=== PATIENT | female | born 1960 | race Caucasian/White ===

== ENCOUNTER 2020-01-19 14:25 | Inpatient (IN) | payer BC ==
[~2020-01-19] VITALS: Ht 154.9 cm; Wt 89.0 kg
--- NOTE | 2020-01-19 14:25 | NUR ---
PATIENT TO ROOM VIA WHEELCHAIR AND PHYSICIAN NOTIFIED OF PATIENT STATUS
--- NOTE | 2020-01-19 15:30 | NUR ---
PT RESTING ON STRETCHER WITH ANTIBIOTICS INFUSING. DENIES ANY NEEDS AT THIS TIME. CALL LIGHT WITHING REACH
[2020-01-19 15:32] LABS: HEMATOCRIT 42.1 % (37.0-47.0); HEMOGLOBIN 14.3 g/dl (12.0-16.0); IMMATURE GRANULOCYTES 0.6 % (0.0-5.0); MEAN CELL VOLUME 85.4 fL CALC (80.0-100.0); NEUT# 8.23 thou/uL (2.00-7.15); RED BLOOD COUNT 4.93 mill/uL (4.20-5.60); RED CELL DISTRI WIDTH 12.6 % (11.5-15.5)
[2020-01-19 15:58] LABS: ALBUMIN 4.1 g/dL (3.2-5.0); ALKALINE PHOSPHATASE 71 u/l (38-126); ANION GAP 14 (6-22 (CALC)); BILIRUBIN, TOTAL 0.7 mg/dL (0.0-1.4); BUN 14 mg/dL (7-17); BUN/CREATININE RATIO 19 (12-20 (CALC)); CARBON DIOXIDE 26 mmol/l (22-30); CHLORIDE 99 mmol/l (95-108); CREATININE 0.8 mg/dL (0.5-1.0); GFR > 60 ML/MIN (>=60 (CALC)); GFR FOR AFR.AMER. > 60 ML/MIN (>=60 (CALC)); POTASSIUM 3.7 mmol/l (3.5-5.1); SGOT/AST 51 u/l (14-36); SODIUM 135 mmol/l (137-146); TOTAL PROTEIN 7.5 g/dL (6.3-8.2)
[2020-01-19 16:09] LABS: C-REACTIVE PROTEIN 19.2 mg/dL (0-0.9)
[2020-01-19] MEDS ORDERED: OZEMPIC2 MG/1.5 M (16:10)
--- NOTE | 2020-01-19 16:17 | NUR ---
PT RESTING ON STRETCHER. PT DESAT TO 87% RESP AT BEDSIDE APPLYING A VAPOTHERM. PT IN NO DISTRESS. HOB ELEVATED. WILL CONTINUE TO MONITOR.
--- NOTE | 2020-01-19 16:19 | NUR ---
PT RESTING ON STRETCHER DENIES ANY NEEDS WILL CONTINUE TO MONITOR. CALL LIGHT WITHIN REACH
--- NOTE | 2020-01-19 17:01 | NUR ---
PT DISCUSSING PLAN OF CARE WITH MD WHO IS AT BEDSIDE. PT CONTINUES ON O2. TOLERATING WELL, IN NO DISTRESS. DENIES ANY NEEDS. WILL CONTINUE TO MONITOR.
--- NOTE | 2020-01-19 17:45 | NUR ---
PT TRANSPORTED TO ICU STABLE AND IN NO DISTRESS. PT CARE ASSUMED TO LELAND Admission Note Report Given to: LEALND Transported by: Wheelchair X Stretcher Transported with: Nurse Transporter X Patent IV X O2 X Out And Out Cigar Maker Hand Location: X ICU MS2
--- NOTE | 2020-01-19 17:45 | NUR ---
GAVE REPORT TO LELAND
[2020-01-19 18:00] VITALS: BP 140/61
--- NOTE | 2020-01-19 18:30 | NUR ---
PT ARRIVES TO ROOM 3 IN ICU BY STRETCHER FROM ER ACCOMPANIED BY KRYSTLE DENT. PT IS ALERT AND ORIENTED X 3, AMBULATORY. PT PLACED ON MONITORS. NO COMPLAINT OF SHORTNESS OF BREATH OR OTHERWISE. CALL BROUSSARD AT BEDSIDE.
[2020-01-19 19:00] VITALS: BP 148/69
--- NOTE | 2020-01-19 19:45 | NUR ---
RESTING IN BED ON ROUNDS. ALERT AND ORIENTED. RESP NON-LABORED AT REST. ASSISTED PATIENT UP TO BSC, DYSPNEIC WITH EXERTION. BREATH SOUNDS COARSE THROUGHOUT LUNG RICK. O2 ON AT 2 L NC. NO PERIPHERAL EDEMA. LUIS HOSE ON BILATERALLY. PERIPHERAL PULSES PALPABLE. SALINE LOCK IN RAC, SITE BENIGN, FLUSHED AND PATENT. NS STARTED AT 80 ML/HR ORDERED. PROFESSIONAL HOUSING CONSULTANT SHOWS SR. DISCUSSED PLAN OF CARE. MEDICATED WITH TYLENOL 650 MG PO FOR C/O HEADACHE. CALL BROUSSARD IN REACH.
[2020-01-19 20:00] VITALS: BP 144/70
[2020-01-19 21:00] VITALS: BP 134/72
--- NOTE | 2020-01-19 21:59 | NUR ---
RESTING QUIETLY IN BED. RESP NON-LABORED AT REST. VSS. SR ON MONITOR.
[2020-01-19 22:00] VITALS: BP 110/58
[2020-01-19 23:00] VITALS: BP 130/61
[2020-01-20] VITALS (19 sets, daily range): BP systolic 115–203; BP diastolic 56–89
--- NOTE | 2020-01-20 | NUR ---
PATIEINT SOB WITH MINIMAL EXERTION. VSS. SR ON MONITOR.
--- NOTE | 2020-01-20 00:15 | NUR ---
O2 SAT RUNNING 80-84% ASSISTED PATIENT TO PRONE POSTION.
--- NOTE | 2020-01-20 00:30 | NUR ---
O2 SAT SHOWING 85% CHANGED TO HF NC AT 10 L. O2 SAT PICKED UP TO 90-93%
--- NOTE | 2020-01-20 02:00 | NUR ---
VSS. O2 SAT 93% SR ON MONITOR.
--- NOTE | 2020-01-20 04:00 | NUR ---
NO CHANGES TO REPORT. CONTINUES ON HF NC AT 10 L. O2 SAT 90-95% SR ON MONITOR.
[2020-01-20 05:08] LABS: HEMATOCRIT 39.2 % (37.0-47.0); HEMOGLOBIN 13.2 g/dl (12.0-16.0); IMMATURE GRANULOCYTES 0.5 % (0.0-5.0); MEAN CELL VOLUME 86.5 fL CALC (80.0-100.0); MEAN CORPUSCULAR HGB 29.1 pG CALC (26.0-32.0); MEAN CORPUSCULAR HGB CONC 33.7 g/dL CAL (32.0-36.0); NEUT# 6.22 thou/uL (2.00-7.15); RED BLOOD COUNT 4.53 mill/uL (4.20-5.60); RED CELL DISTRI WIDTH 12.6 % (11.5-15.5)
[2020-01-20 05:32] LABS: ANION GAP 11 (6-22 (CALC)); BUN 14 mg/dL (7-17); BUN/CREATININE RATIO 25 (12-20 (CALC)); CARBON DIOXIDE 26 mmol/l (22-30); CHLORIDE 104 mmol/l (95-108); CREATININE 0.5 mg/dL (0.5-1.0); GFR > 60 ML/MIN (>=60 (CALC)); GFR FOR AFR.AMER. > 60 ML/MIN (>=60 (CALC)); POTASSIUM 4.3 mmol/l (3.5-5.1); SODIUM 136 mmol/l (137-146)
--- NOTE | 2020-01-20 06:10 | NUR ---
RESTING WITH EYES CLOSED. RESP NON-LABORED AT REST. REMAINS ON O2 AT 10 L HF NC. NS INFUSING AT 80 ML/HR. MONITOR SR.
--- NOTE | 2020-01-20 07:09 | NUR ---
CHANGED HUMIDIFICAGTION CHAMBER. PT DESAT TO 83 DURING THAT TIME. SUPERVISOR RUBBER COVERING PLACED PT ON HFNC AT 11LPM. SPO2 =89 WHEN SUPERVISOR RUBBER COVERING LEFT ROOM. PA IN NAD. VSS. RN AWARE. AIRPLANE TECHNICIAN IN ROOM WITH PT TO HELP USE RESTROOM. SUPERVISOR RUBBER COVERING TO MONITOR.
--- NOTE | 2020-01-20 08:12 | NUR ---
PT SITTING UP IN BED, ALERT/ORIENTED TO SELF. STATES SLIGHT SOB, PT IS ON HIGH FLOW AT 10
--- NOTE | 2020-01-20 11:12 | NUR ---
PT SITTING UP IN CHAIR PER REQUEST. SATS 85%
--- NOTE | 2020-01-20 11:29 | NUR ---
PT REMAINS SITTING UP IN CHAIR, STATES FEELS A LITTLE BETTER SITTING UP, WATCHING TV. ALERT/ORIENTED X3, SATS 88% ON HIGH FLOW 11 LITRE.
--- NOTE | 2020-01-20 11:54 | NUR ---
INCREASED LPM ON HFNC PER PT SPO2 IN CHAIR=86. RT TO MONITOR. POSSIBLE VAPOTHERM IF HFNC NOT TOLERATED.
--- NOTE | 2020-01-20 15:31 | NUR ---
PT USING BEDSIDE COMMODE AT THIS TIME. SPO2 MONITOR OFF. NAD. VSS. INGOT CASTER IN ROOM WITH PT. -
--- NOTE | 2020-01-20 15:31 | NUR ---
PT PLACED BACK IN BED. SATS 83%, RT AT BEDSIDE
--- NOTE | 2020-01-20 17:47 | NUR ---
PT SITTING UP IN BED, EATING DINNER TRAY, STILL WATCHING A FOOTBALL GAME. PT DENIES ANY COMPLAINTS AT THIS TIME
--- NOTE | 2020-01-20 20:30 | NUR ---
PATIENT RESTING IN SEMI-FOWLERS POSITION. RESP SHALLOW AND LABORED. ON O2 AT 15 L PER HFNC. RESP RATE 42. O2 SAT 83-84% BREATH SOUNDS COARSE, DIMINISHED. NON-PRODUCTIVE COUGH PRESENT. ABD SOFTLY DISTENDED, ACTIVE BOWEL SOUNDS HEARD. NO PERIPHERAL EDEMA, PULSES PALPABLE. IV IN RAC, SITE BENIGN, NS INFUSING AT 80 ML/HR. MANAGER MORTGAGE SHOWS SR. EXPLAINED TO PATIENT BENEFITS OF PRONING. PATIENT STATES "I CAN'T DO IT." WILL CONTINUE TO MONITOR CLOSELY. DISCUSSED PLAN OF CARE.
--- NOTE | 2020-01-20 20:35 | NUR ---
CALLED RT TO EVALUATE PATIENT.
--- NOTE | 2020-01-20 20:45 | NUR ---
ABG'S DRAWN PER RT. PATIENT REMAINS WITH RESP RATE IN THE 40'S WITH O2 SAT IN TH ELOW 80'S EVEN AT REST. EXPLAINED PLACEMENT OF CONTRERAS CATHETER TO PATIENT AND SHE VERBALLLY GAVE PERMISSION. #18 CONTRERAS CATHETER PLACED AND DRAINING CLAER YELLOW URINE.
--- NOTE | 2020-01-20 21:00 | NUR ---
CALL TO DR DOVE TO REPORT PATIENT DESATTING, ABG RESULTS, SAHALLOW RAPID RESP AND C/O BACK PAIN. NEW ORDERS RECEIVED.
--- NOTE | 2020-01-20 22:03 | NUR ---
RT CALLED TO EVALUATE PATIENT.
--- NOTE | 2020-01-20 22:15 | NUR ---
MORPHINE 1 MG IVP GIVEN FOR C/O BACK PAIN. PATIENT RESTING IN SEMI-FOWLERS POSITION. O2 SAT 89%
--- NOTE | 2020-01-20 23:00 | NUR ---
RESTING WITH EYES CLOSED.
[2020-01-21] VITALS (19 sets, daily range): BP systolic 160–191; BP diastolic 69–94
--- NOTE | 2020-01-21 | NUR ---
O2 SAT CONTINUES 80-84% WILL CONTINUE TO MONITOR.
--- NOTE | 2020-01-21 00:15 | NUR ---
ASSISTED PATIENT TO PRONE POSITION.
--- NOTE | 2020-01-21 00:30 | NUR ---
PATIENT UNABLE TO TOLERATE PRONING. O2 SAT DROPPED INTO THE 70'S. CALLED TO RT TO EVALAUTE.
--- NOTE | 2020-01-21 00:35 | NUR ---
RESP RATE 48. RESP SHALLOW, RAPID, LABORED. O2 SAT CONTINUES 78-83% RT PLACED ON BIPAP [id number], EPAP-6, RATE 16, FIO2-100% O2 SAT PICKED UP INTO THE 90'S. EMOTIONAL SUPPORT AND REASSURNACE PROVIDED TO PATIENT.
--- NOTE | 2020-01-21 01:00 | NUR ---
O2 SAT 95-97% ON BIPAP. RESTING WITH EYES CLOSED.
--- NOTE | 2020-01-21 02:00 | NUR ---
VSS. SR ON MONITOR. TOLERATING BIPAP WELL. O2 SAT 96%
--- NOTE | 2020-01-21 03:00 | NUR ---
DOZES FOR SHORT INTERVALS. PATIENT C/O MOUTH AND THROAT BEING DRY FROM BIPAP-ASSISTED PATIENT WITH SIPS OF WATER.
--- NOTE | 2020-01-21 04:00 | NUR ---
RESTING CALMLY AND QUIETLY. VSS. SR ON MONITOR. IV INFUSING WITHOUT INCIDENT.
--- NOTE | 2020-01-21 05:21 | NUR ---
MEDICATED WITH MORPHINE 1 MG IVP ORDERED FOR C/O BACK PAIN. PATIENT RESTIGN IN SEMIFOWLERS POSITON. REMAINS TACHYPNEIC-RESP RATE 42-50. BIPAP SETTINGS UNCHANGED FROM EARLIER. O2 SAT 94% MONITOR SR.
--- NOTE | 2020-01-21 06:00 | NUR ---
RESTING QUIETLY AT THIS TIME. VSS. FREQ EMOTIONAL SUPPORT AND REASSURANCE PROVIDED TO PATIENT THROUGHOUT THE SHIFT. VSS. SR ON MONITOR.
--- NOTE | 2020-01-21 07:43 | NUR ---
PT REPORT RECEIVED FROM ICU NURSE, RESP TECH HERE AND CHANGED MASK ON CPAP, PT RESP AROUND 40 WITH CPAP
--- NOTE | 2020-01-21 08:14 | NUR ---
PTS SATS REMAIN AT 95%, WITH PT LYING ON BED, ON BIPAP, RESP APPROX 40 AT THIS TIME. PT STATES IS ABLE TO TOLERATE IT AT THIS TIME, BUT DOESNT KNOW HOW LONG SHE WANTS TO KEEP THE MASK ON,
--- NOTE | 2020-01-21 08:38 | NUR ---
PER WOULD LIKE TO TRY PT BACK ON VAPOTHERM INSTEAD OF BIPAP, NOTIFIED RESP TECH, ALSO REQUESTED AN ORDER FOR SOMETHING FOR ANXIETY, PTS STATES SHE CANT CALM DOWN WITH THE BIPAP ON.
--- NOTE | 2020-01-21 09:32 | NUR ---
EXPLAINED TO PT THAT WE WOULD BE TRYING TO PLACE PT BACK ON VAPOTHERM TO SEE HOW WELL SHE DOES WITH THAT, IF SATS DO NOT REMAIN UP OR RESP INCREASE WILL PLACE PT BACK ON BIPAP. IV FLUIDS REDUCED TO 50 CC/HR
--- NOTE | 2020-01-21 11:23 | NUR ---
TRIED TO PLACE PT ON VAPOTHERM AND PTS SATS DROPPED TO 70'S AND RESP WENT UP TO 46-48, AND PTS STARTED SAYING SHE HAD TO SIT UP AND IT WAS GETTING TOO HOT, SHE NEEDED AIR, PLACED PT BACK ON BIPAP. SATS WENT UP TO 91% RESP WENT DOWN TO 34. PT STATES FEELS A LITTLE BETTER AFTER BEING PLACED BACK ON BIPAP.
--- NOTE | 2020-01-21 11:56 | NUR ---
PT TRIALED ON VAPOTHERM OFF OF BIPAP. PT RR 40'S SPO2 DECLINED TO 74. PT RETURNED TO BIPAP ORIGINAL SETTINGS AND DR. VIDAL NOTIFIED.
--- NOTE | 2020-01-21 12:03 | NUR ---
DR. DOVE AT BEDSIDE, SPEAKING TO PT ABOUT POSSIBLY BEING PLACED ON VENT, WILL TRY HER ON CPAP AND IF THAT DOESNT WORK WILL PLACE HER ON VENTILATOR.
--- NOTE | 2020-01-21 12:23 | NUR ---
PT PLACED ON CPAP 12 100% FIO2 PRE DR. VIDAL.PT TOLERATING AT THIS TIME. FILIPE TRUJILLO AWARE AND AT BEDSIDE. WILL CONTINUE TO MONITOR.
--- NOTE | 2020-01-21 12:23 | NUR ---
SPOKE TO PT ABOUT POSSIBLY PLACING ON VENTILLATOR, PT STATES "NOT NOW, NO NOT NOW". SPOKE TO AND INFORMED HIM THAT PT IS NOT READY AT THIS TIME TO SIGN CONSENT. WILL SEE HOW PT DOES ON CPAP AT THIS TIME. SATS REMAIN IN LOW 90'S
--- NOTE | 2020-01-21 12:47 | NUR ---
PTS SATS UP TO 97%, RESP TECH, ADJUSTED CPAP TO 70% AND 12. PT APPEARS TO BE TOLERATING CPAP AT THIS TIME, SATS AT 90%
--- NOTE | 2020-01-21 12:54 | NUR ---
PT STATES FEELS A LITTLE EASIER BREATHING FOR HER AT THIS TIME. WAS TEXTING ON HER PHONE AND GIVING A THUMBS UP THAT SHE IS OKAY
--- NOTE | 2020-01-21 12:58 | NUR ---
0630 RECEIVED PT ON BIPAP WITH ORDERED SETTINGS 18/6/100%. INCREASED PEEP TO 8 SPO2 92%. FILIPE TRUJILLO AWARE. 0830 PT RR REMAINS ABOVE 45. DR. VIDAL AWARE. PEEP INCREASED TO 10. PT ASK TO USE VAPOTHERM, UNSUCCESSFULLY. PT RETURNED TO BIPAP NOTED. FILIPE SOMMER AWARE.
--- NOTE | 2020-01-21 13:16 | NUR ---
ABG OBTAINED AT THIS TIME.
--- NOTE | 2020-01-21 13:22 | NUR ---
ABG RESULTS ON CPAP OF 12. 7.40/37.1/73/22.7/93.8% SPO2. FILIPE US.
--- NOTE | 2020-01-21 15:03 | NUR ---
PT REMAINS ON CPAP, INSTRUCTED PT ONCE AGAIN TO USE SLOW DEEPER BREATHS, WHEN INSTRUCTED PT CAN SLOW BREATHS DOWN TO 26-28, BUT IF NOT IN THERE TALKING TO PT, SHE WILL GO BACK UP TO 40-50 RESP RATE, PT STILL REMAINS ADAMANT THAT SHE DOES NOT WANT TO SIGN ANY CONSENTS AT THIS TIME TO BE INTUBATED.
--- NOTE | 2020-01-21 15:17 | NUR ---
TRIED TO SPEAK TO PT AGAIN ABOUT INTUBATION, AND THAT HER RESPIRATORY RATE WAS TOO HIGH AND SATS DROPPING AND SHE NEEDED TO CONSIDER THE NEXT STEP POSSIBLY BEING INTUBATION, AND SHE STATED"PLEASE DO NOT TALK TO ME ABOUT THIS AGAIN" , I WILL LET YOU KNOW WHEN I FEEL LIKE I CANT CATCH MY BREATH. ADVISED PT ABOUT THE RISKS, AND SHE STILL STATED NO
--- NOTE | 2020-01-21 17:00 | NUR ---
PT TEXTING ON PHONE, REMAINS ON CPAP, SATS 95% RR FROM 38-50'S, WILL DROP TO 28-30 WHEN YOU TELL HER TO TAKE SLOW DEEPER BREATHS.
--- NOTE | 2020-01-21 17:31 | NUR ---
PT REMAINS ALERT/ORIENTED X3, TEXTING ON PHONE, TOOK OFF MASK LONG ENOUGH TO ALLOW PT SOME SIPS OF WATER AND MOUTH CARE. REPOSITIONED PT IN BED, PT STILL ADAMANT THAT SHE IS DOING OKAY WITH CPAP AND DOES NOT NEED ANY OTHER HELP AT THIS TIME. SATS 95% RR 48 AT THIS TIME, ASKED PT TO SLOW BREATHING DOWN AND IT DROPPED TO 28 RR
--- NOTE | 2020-01-21 18:12 | NUR ---
INFORMED PT THAT HAD CALLED, AND SHE INDICATED WITH LIFTING UP HER PHONE THAT SHE HAD TEXTED WITH HIM. PT REMAINS ALERT/ORIENTED X3, SATS 92% RR WERE 34 UNTIL THIS WALL WORKER WENT INTO ROOM THEN RR WENT UP TO 54, SPOKE TO PT TO SLOW BREATHING DOWN ONCE AGAIN AND PT WAS ABLE TO GET RR DOWN TO 28, IS USING ABDOMINAL MUSCLES FOR BREATHING AND BEGINS USING SHALLOW BREATHING IF NOT REMINDING HER ALL THE TIMES. ONCE AGAIN SPOKE TO PT ABOUT POSSIBILITY OF THE NEED FOR INTUBATION AND PT NODDED HEAD BUT SAID AGAIN " I AM OKAY, I DONT WANT TO RIGHT NOW". ASKED FOR A SIP OF WATER AGAIN, REMOVED MASK AND GAVE PT SMALL DRINK AND SOME ICE CHIPS, PT SMILED AND THANKED ME, AND PLACED MASK BACK ON. PT DENIES NEEDING ANY BLANKETS , STATES JUST WAS TIRED AND WANTED TO GO TO SLEEP AGAIN.
--- NOTE | 2020-01-21 18:31 | NUR ---
PT RESTING AT THIS TIME, LIGHTS TURNED OFF, RESPIRATIONS 30, SHALLOW, SATS 93%
--- NOTE | 2020-01-21 18:45 | NUR ---
PATIENT RECEIVED ON CPAP MODE. CPAP OF 12 CM OF H2O, WITH 100% FIO2.
--- NOTE | 2020-01-21 19:55 | NUR ---
RESTING WITH EYES CLSOED. AROUSES EASILY TO NAME. ALERT AND ORIENTED X4. RESP REMAIN TACHYPNIEC. RR 39. ON CPAP SETTINGS 12 CM, FIO2 100%, RATE 16. O2 SAT 96% BREATH SOUNDS COARSE THROUGHOUT LUNG RICK. NO PERIPHERAL EDEMA, PULSES PALPABLE. IV IN RAC #20 WITH NS INFUSING AT 50 ML/HR. SALINE LOCK #22 IN LH. BOTH SITES BENIGN. BARLEY STEEPER SHOWS SR. DISCUSSED PLAN OF CARE. CALL BROUSSARD IN REACH. EMOTIONAL SUPPORT AND REASSURANCE PROVIDED.
--- NOTE | 2020-01-21 21:27 | NUR ---
MEDICATED WITH MORPHINE 1 MG IVP ORDERED FOR C/O BACK PAIN. RESTING IN SEMI-FOWLERS POSITON. MAINTAINING O2 SATS GREATER THAN 93% ON CPAP.
--- NOTE | 2020-01-21 22:00 | NUR ---
RESTING CALMLY AND QUIETLY. VSS. RR 37, O2 SAT 93% VSS. MONITOR SR.
[2020-01-22] VITALS (21 sets, daily range): BP systolic 100–225; BP diastolic 48–141
--- NOTE | 2020-01-22 | NUR ---
RESTING WITH EYES CLOSED, AWAKENS TO NAME. VSS. STATES SHE IS COMFORTABLE. TOLERATING CPAP WELL. MONITOR SR.
--- NOTE | 2020-01-22 02:00 | NUR ---
MAINTAINING O2 SAT GREATER THAN 90% CPAP SETTINGS UNCHANGED. VSS. MONITOR SR.
--- NOTE | 2020-01-22 03:05 | NUR ---
MORPHINE 1 MG IVP ORDERED FOR C/O PAIN.
--- NOTE | 2020-01-22 04:00 | NUR ---
RESTIGN QUIETLY. VSS. SR ON MONITOR. CONTIUES TO TOLERATE CPAP WELL.
--- NOTE | 2020-01-22 05:45 | NUR ---
COMPLETE BED BATH GIVEN. REFUSED BED CHANGE AT THIS TIME. IV CONITNUES TO INFUSE INTO RAC, NS AT 50 ML/HR. CPAP SETTINGS UNCHANGED DURING THE NIGHT. O2 SAT MAINTAINED 90% OR GREATER. REMAINS TACHYPNEIC. MONITOR SR.
[2020-01-22 05:59] LABS: HEMATOCRIT 41.1 % (37.0-47.0); HEMOGLOBIN 13.6 g/dl (12.0-16.0); IMMATURE GRANULOCYTES 0.7 % (0.0-5.0); MEAN CELL VOLUME 87.6 fL CALC (80.0-100.0); MEAN CORPUSCULAR HGB CONC 33.1 g/dL CAL (32.0-36.0); NEUT# 12.07 thou/uL (2.00-7.15); RED BLOOD COUNT 4.69 mill/uL (4.20-5.60); RED CELL DISTRI WIDTH 12.9 % (11.5-15.5)
[2020-01-22 06:19] LABS: ANION GAP 11 (6-22 (CALC)); BUN 15 mg/dL (7-17); BUN/CREATININE RATIO 30 (12-20 (CALC)); CARBON DIOXIDE 27 mmol/l (22-30); CHLORIDE 102 mmol/l (95-108); CREATININE 0.5 mg/dL (0.5-1.0); GFR > 60 ML/MIN (>=60 (CALC)); GFR FOR AFR.AMER. > 60 ML/MIN (>=60 (CALC)); POTASSIUM 4.6 mmol/l (3.5-5.1); SODIUM 136 mmol/l (137-146)
[2020-01-22 06:30] LABS: C-REACTIVE PROTEIN 25.2 mg/dL (0-0.9)
--- NOTE | 2020-01-22 06:45 | NUR ---
RECIEVED REPORT FROM FILIPE SIDDIQI. ASSUMED PT CARE.
--- NOTE | 2020-01-22 08:00 | NUR ---
PT A&OX4, ABLE TO MAKE NEEDS KNOWN, RESPIRATIONS LABORED, SA02@90% WITH CPAP, SEE RT SETTING, LS COARSE THROUGHOUT, PT RR-40-50 WITH NO EXERTION. ABDOMEN SOFT NON-TENDER, BSX4, CONTRERAS REMAINS PATENT DRAINING TO BSD VIA GRAVITY YASMIN URINE. NS INFUSING TO 20 RAC, NO S/S OF INFILTRATION. SPOKE WITH PT ABOUT POSSIBLE INTUBATION. CONSENT OBTAINED. CALL LIGHT IN REACH. WILL MONITOR.
--- NOTE | 2020-01-22 08:20 | NUR ---
DR. DOVE AT BEDSIDE FOR ASSESSMENT AND TO DISCUSS PLAN OF CARE, NEW ORDERS RECIEVED.
--- NOTE | 2020-01-22 08:30 | NUR ---
DR. HOBSON AT BEDSIDE FOR INTUBATION
--- NOTE | 2020-01-22 09:05 | NUR ---
0831- JAZLYN AT BEDSIDE 0832- 20MG AMIDATE IVP 0833- 100MG ROCURONIUM IVP 0834- DR. HOBSON INTUBATED, RT AT BEDSIDE, LL-22; TV-500; RR-22; FIO2@100%, PEEP-12. 0837- OG TUBE PLACED 0839- 5ML DIPROVAN IVP 084O- DIPROVAN STARTED PER PROTOCOL ORDERED 0856- 5ML DIPROVAN IVP. 0900- R FEMORAL CL/TL PLACED 0905- RADIOLOGY AT TO CONFIRM PLACEMENT OF OG, INTUBATION AND CL. VERIFIED.
--- NOTE | 2020-01-22 09:30 | NUR ---
DR. DOVE AT BEDSIDE FOR ASSESSMENT.
--- NOTE | 2020-01-22 10:00 | NUR ---
SUKUMAR, RT AT BEDSIDE TV DECREASED TO 450.
--- NOTE | 2020-01-22 10:30 | NUR ---
RT AYESHA AT BEDSIDE TO DRAW ABG.
--- NOTE | 2020-01-22 11:00 | NUR ---
RT AT BEDSIDE TO ADJUST AND ASSESS VENT SETTINGS.
--- NOTE | 2020-01-22 12:00 | NUR ---
PT RESPIRATIONS EVEN, UNLABORED, REMAINS VENTED, CONTRERAS PATENT DRAINING TO BSD VIA GRAVITY. MOUTH CARE, CONTRERAS CARE. WILL MONITOR.
--- NOTE | 2020-01-22 12:58 | NUR ---
NOTIFIED [facility] AT [facility] TO INITIATE TRANSFER. FACE SHEET, H&P AND COVID RESULT FAXED PER REQUEST [phone]
--- NOTE | 2020-01-22 13:19 | NUR ---
DR. HOBSON CALLED, RT TO ADVANCE ET TUBE 2CM, CXR TO CONFIRM PLACEMENT. ANABEL, RT AT BEDSIDE.
--- NOTE | 2020-01-22 14:00 | NUR ---
CALLED WITH CODE, UPDATE GIVEN.NOTIFIED OF PENDING TRANSFER.
--- NOTE | 2020-01-22 15:06 | NUR ---
[facility] FROM [facility] CALLED WITH ACCEPTION. PT TO BE ADMITTED TO ICU/ 5C. REPORT TO BE CALLED TO [phone].
--- NOTE | 2020-01-22 15:49 | NUR ---
CALLED [facility], SPOKE WITH PERRY HOWARD 30MIN.
--- NOTE | 2020-01-22 15:50 | NUR ---
REPORT CALLED TO CECILIA ORTIZ, FILIPE [phone].
--- NOTE | 2020-01-22 16:18 | NUR ---
[facility] ARRIVED AT BEDSIDE. RT AT BEDSIDE.
--- NOTE | 2020-01-22 16:49 | NUR ---
[facility] LEFT FOR TRANSPORT WITH PT VIA STRETCHER, NOTIFIED [phone] "[phone]"
== END 2020-01-22 16:49 | disposition short-term general hospital (02) | DRG 208 ==
LOC: ED 14:25 → ED-I 17:03 → ED 17:20 → ICU 17:21
PROVIDERS: Family Medicine; ADMIT Internal Medicine; ATTEND Internal Medicine
PROC: XW033E5 Introduction of Remdesivir Anti-infective into Peripheral Vein, Percutaneous Approach, New Technology Group 5 (ICD-10-PCS; principal; 2020-01-19)
PROC: 5A09457 Assistance with Respiratory Ventilation, 24-96 Consecutive Hours, Continuous Positive Airway Pressure (ICD-10-PCS; 2020-01-21)
PROC: 0BH17EZ Insertion of Endotracheal Airway into Trachea, Via Natural or Artificial Opening (ICD-10-PCS; 2020-01-22)
PROC: 5A1935Z Respiratory Ventilation, Less than 24 Consecutive Hours (ICD-10-PCS; 2020-01-22)
PROC: 06HY33Z Insertion of Infusion Device into Lower Vein, Percutaneous Approach (ICD-10-PCS; 2020-01-22)
DX: U07.1 COVID-19 (principal); J12.89 Other viral pneumonia; J96.01 Acute respiratory failure with hypoxia; E11.9 Type 2 diabetes mellitus without complications; I10 Essential (primary) hypertension; Z79.899 Other long term (current) drug therapy
CPT/HCPCS: J1650; J2060; S0164

== ENCOUNTER 2024-01-05 17:51 | Emergency (ER) | payer BC ==
[~2024-01-05] VITALS: Ht 154.9 cm; Wt 42.0 kg
[2024-01-05] VITALS (9 sets, daily range): BP systolic 140–195; BP diastolic 61–93
[~2024-01-05 17:51] MED LIST: OZEMPIC2 MG/1.5 M
[2024-01-05] MEDS ORDERED: MORPHINE SULFATE 4 MG/ML VIAL IV ONE (18:30)
[2024-01-05] MEDS ORDERED: ONDANSETRON HCl 4 MG/2 ML SDV IV ONE ×2 (18:30→22:05)
[2024-01-05] MEDS ORDERED: KETOROLAC TROMETHAMINE 30 MG/ML SDV IV ONE (18:30)
[2024-01-05 18:32] LABS: BASO% 0.4 % (0-3); HEMATOCRIT 42.6 % (37.0-47.0); HEMOGLOBIN 14.4 g/dl (12.0-16.0); IMMATURE GRANULOCYTES 0.3 % (0.0-5.0); LYMPH% 33.6 % (15-41); MEAN CELL VOLUME 89.7 fL CALC (80.0-100.0); MEAN CORPUSCULAR HGB 30.3 pG CALC (26.0-32.0); MEAN CORPUSCULAR HGB CONC 33.8 g/dL CAL (32.0-36.0); MONO% 7.7 % (2-13); NEUT# 4.16 thou/uL (2.00-7.15); RED BLOOD COUNT 4.75 mill/uL (4.20-5.60); RED CELL DISTRI WIDTH 12.7 % (11.5-15.5)
[2024-01-05 18:42] LABS: ALBUMIN 4.3 g/dL (3.2-5.0); POTASSIUM 3.7 mmol/l (3.5-5.1); TOTAL PROTEIN 7.1 g/dL (6.3-8.2)
[2024-01-05 18:45] LABS: BILIRUBIN, TOTAL 0.4 mg/dL (0.02-1.3)
[2024-01-05] MEDS ORDERED: HYDROmorphone HCL 2 MG/AMP IV ONE (22:05)
== END 2024-01-05 22:20 | disposition short-term general hospital (02) | DRG 536 ==
LOC: ED 17:51
PROVIDERS: Nurse Practitioner
PROC: 2W3MX1Z Immobilization of Left Lower Extremity using Splint (ICD-10-PCS; principal; 2024-01-05)
PROC: 2W3DX1Z Immobilization of Left Lower Arm using Splint (ICD-10-PCS; 2024-01-05)
DX: S72.22XA Displaced subtrochanteric fracture of left femur, initial encounter for closed fracture (principal); S52.122A Displaced fracture of head of left radius, initial encounter for closed fracture; I10 Essential (primary) hypertension; E11.9 Type 2 diabetes mellitus without complications; W01.0XXA Fall on same level from slipping, tripping and stumbling without subsequent striking against object, initial encounter; Y92.008 Other place in unspecified non-institutional (private) residence as the place of occurrence of the external cause